=== PATIENT | female | born 1940 | race Caucasian/White ===

== ENCOUNTER 2024-10-11 08:44 | Emergency (ER) | payer MEDICARE, OTHER, SELFPAY ==
[2024-10-11 08:53] VITALS: BP 227/97; PULSE 89; RESP 18; TEMP 36.6; O2SAT 97; BMI 18.8
[2024-10-11 08:55] VITALS: PULSE 77; RESP 18; O2SAT 98
--- NOTE | 2024-10-11 08:59 | DI.CT.S_ITS ---
PROCEDURE: CT CERVICAL SPINE WO CON INDICATIONS: glf TECHNIQUE: Noncontrast 3 mm thick sections acquired from the skull base to the T4 level. Sagittal and coronal reformats were then constructed. For radiation dose reduction, the following was used: automated exposure control, adjustment of mA and/or kV according to patient size. COMPARISON: [facility], CT, CT HEAD/BRAIN WO CON, 10/11/2024, 9:07. FINDINGS: Image quality: Excellent. Bones: No fractures or dislocations. Visualized superior ribs are intact. Minimal anterolisthesis is seen at C3-C4 and C4-C5. There is moderate disc space narrowing seen at C4-C5 and C5-C6. Ixen-rr-duzyhsjk disc space narrowing is seen at C6-C7. Posteriorly directed endplate osteophytes are seen, which are worst at C5-C6. Multiple levels of facet hypertrophy can be seen. There is a degree of vertebral body fusion seen at T1-T2, which has the appearance of congenital fusion. Soft tissues: Prevertebral soft tissues are normal in thickness. No paravertebral hematomas. No apical pneumothoraces. Left upper lobe consolidation can be seen, with air bronchograms. IMPRESSION: No displaced fracture or traumatic subluxation. Left upper lobe consolidation with air bronchograms, which is attributed to infectious infiltrate. Degenerative changes are seen, which are worst at C5-C6. Dictated by: Daniel Chao M.D. on 10/11/2024 at 8:50 Approved by: Daniel Chao M.D. on 10/11/2024 at 8:52
--- NOTE | 2024-10-11 08:59 | DI.CT.S_ITS ---
PROCEDURE: CT HEAD/BRAIN WO CON INDICATIONS: glf TECHNIQUE: Noncontrast 4.5 mm thick angled axial sections acquired from the foramen magnum to the vertex, with coronal and sagittal reformats. For radiation dose reduction, the following was used: automated exposure control, adjustment of mA and/or kV according to patient size. COMPARISON: [facility], CT, CT CERVICAL SPINE WO CON, 10/11/2024, 9:07. FINDINGS: Image quality: Streak artifact can be seen through the skull base. CSF spaces: Basal cisterns are patent. No extra-axial fluid collections. The ventricles are symmetric in size and shape. Brain: No intracranial bleeds or mass effect. There is cerebral volume loss, with resultant ventricular and sulcal prominence. There are periventricular and deep white matter chronic small vessel ischemic changes. There is intracranial internal carotid artery atherosclerosis. Skull and face: Calvarium and visualized facial bones appear intact, without suspicious lesions. Sinuses: Visualized sinuses and mastoids are clear. IMPRESSION: No acute intracranial hemorrhage is seen. No acute intracranial pathology. Dictated by: Daniel Chao M.D. on 10/11/2024 at 8:52 Approved by: Daniel Chao M.D. on 10/11/2024 at 8:53
[2024-10-11 09:00] VITALS: BP 166/74; PULSE 69; O2SAT 98
--- NOTE | 2024-10-11 09:18 | ED.FALL ---
HPI - Fall General Chief Complaint: Fall Stated Complaint: FELL ON HEAD BLEEDING Time Seen by Provider: 10/11/24 09:10 Source: patient, RN notes reviewed and old records reviewed Mode of arrival: Ambulatory Limitations: no limitations History of Present Illness HPI Narrative: 84-year-old female no daily medications or anticoagulants who presents with ground level fall and injury to her head. Patient states she had gone over to a friend's house to try to feed the cat while they are out of town there was a small tree that was down she went to pull it a side so she could walk around the tree broke she fell backwards hitting her head. States she thinks she had a brief loss of consciousness she does not think it was any longer than a minute. She felt very dizzy afterwards crawled back to her car. Was able to drive home and call EMS. Since then she has been able to ambulate but still feels pretty shaky. States her head does hurt. Denies any neck or back pain. Denies any chest pain or shortness of breath. No nausea or vomiting. Denies any GI or urinary symptoms or incontinence. Denies any numbness tingling or weakness of her extremities. Patient states this happened around 6:40 a.m.. She states no daily medications. No recent surgeries. No tobacco, alcohol or recreational drugs. She lives on [place] [facility] saw her encouraged her to come to have imaging she caught the Sharpes. She states tetanus is up-to-date. Related Data Home Medications Medication Instructions Recorded Confirmed CA PANTOTHENATE/FOLIC ACID/VIT 1 tab PO QDAY ##1 07/27/11 (MULTIPLE VITAMINS) Calcium Carbonate/Vitamin D 1 cap PO BID ##0 07/27/11 (#CALCIUM) VITAMIN D 400 iu PO QDAY ##0 07/27/11 Previous Rx's Medication Instructions Recorded amoxicillin 875 mg-potassium 1 tab PO BID #20 tabs 10/11/24 clavulanate 125 mg tablet Allergies Allergy/AdvReac Type Severity Reaction Status Date / Time CODEINE Allergy Mild VOMITING Uncoded 09/05/17 12:07 PENICILLIN Allergy Mild Uncoded 09/05/17 12:07 SULFA (SULFONAMIDE) Allergy Mild Uncoded 09/05/17 12:07 Review of Systems Review of Systems ROS Unobtainable: All systems reviewed & are unremarkable except as noted in HPI and below Patient History Social History Smoking Status: Never smoker Smoking Status: Never smoker Exam Narrative Exam Narrative: GEN: Patient appears in mild distress. HEAD: Patient has posterior scalp laceration that is approximately a cm close to the top of the scalp but posterior, there was also a small puncture about a cm below the top laceration. no raccoon/Tabor sign. NECK: Nontender, painless range of motion, trachea midline Negative for Nexus criteria, no midline line tenderness, distracting injury, altered mental status, neuro deficit, recent EtOH. EYES: PERRLA, EOMI ENT: External inspection normal, trachea is midline, Nares are clear, no septal hematoma, no dental or oral injury, airway is normal and with normal occlusion, No bony tenderness RESP: Chest is nontender and has symmetric movement, no ecchymosis, breath sounds are normal no crackles, wheezes or rales CVS: Heart sounds are normal, no murmur noted, No JVD. ABG/GI: Nontender, soft, normal bowel sounds, no distention, no organomegaly, pelvic rock is negative NEURO: Oriented AOx3, neuro is grossly intact, sensation and motor is normal all 4 extremities moving, cranial nerves II through XII are intact, GCS is 15 PSYCH: Normal mood and affect SKIN: Intact, warm and dry, no crepitus and without decubitus BACK: No CVA tenderness, no vertebral tenderness, no step-off's, no crepitus EXT: Atraumatic, hips are nontender, no pedal edema, normal color and temperature, normal range of motion of extremities with normal tendon exam, 2+ pulses in all four extremities Initial Vital Signs Initial Vital Signs: Vital Signs Temperature 97.8 F 10/11/24 08:53 Pulse Rate 89 10/11/24 08:53 Respiratory Rate 18 10/11/24 08:53 Blood Pressure 227/97 H 10/11/24 08:53 Pulse Oximetry 97 10/11/24 08:53 Oxygen Delivery Method Room Air 10/11/24 08:53 Procedures Laceration Repair Laceration 1: Site: scalp Size (cm): 1 Description: irregular Depth: simple, single layer Skin layer closed with: akhil (#3 akhil ) Scores [place] CT Head Rule Age <16 years old: No Patient on blood thinners: No Seizure after injury: No Exclusion: Patient NOT Excluded, Proceed to next steps GCS < 15 at 2 hr post trauma: No Suspected open or depressed skull fracture: No Any sign of basilar skull fracture (hemotympanum, raccoon eyes, Tabor's sign, CSF aj-/rhinorrhea): No Two or more episodes of vomiting: No Age greater or equal to 65 years: Yes Retrograde amnesia to the event greater or equal to 30 min: No Dangerous Mechanism (pedestrian vs. mv, occupant ejected from mv, fall from >3 ft or > 5 stairs): Yes (+LOC) Recommendation: Consider CT. The Mauritanian Head CT Rule cannot rule out need for Imaging. GCS [place] coma scale eye opening: Spontaneous Hue coma scale verbal response: Orientated Hue coma scale motor response: Obey commands Hue coma scale total score: 15 Nexus Score for C-Spine Focal Neurologic deficit present: No Midline spinal tenderness present: No Altered level of conciousness present: No Intoxication present: No Distracting Injury Present: No Nexus Criteria for C-spine: 0 Course Orders Ordered: ED Orders 10/11/24 08:59 CT cervical spine wo con Stat CT head/brain wo con Stat Discontinued Medications Lidocaine/Prilocaine (Lidocaine/Prilocaine 30 Gm) 1 applic TOP NOW ONE Stop: 10/11/24 09:38 Last Admin: 10/11/24 09:44 Dose: Not Given Documented By: DOMINGO Lidocaine/Prilocaine (Lidocaine/Prilocaine 5 Gm) 1 gm TOP NOW ONE Stop: 10/11/24 09:46 Last Admin: 10/11/24 09:44 Dose: 1 gm Documented By: DOMINGO Vital Signs Vital signs: Vital Signs - 8 hr 10/11/24 08:53 10/11/24 08:55 10/11/24 09:00 Temperature 97.8 F Pulse Rate 89 77 69 Respiratory Rate 18 18 Blood Pressure 227/97 H Pulse Oximetry 97 98 98 Oxygen Delivery Method Room Air 10/11/24 09:00 10/11/24 10:35 Temperature Pulse Rate 78 Respiratory Rate 18 Blood Pressure 166/74 H 160/74 H Pulse Oximetry 98 Oxygen Delivery Method Room Air MDM - Fall MDM Narrative Medical decision making narrative: 84-year-old female with mechanical ground level fall fell backwards striking her head states she had a brief loss of consciousness felt quite dizzy afterwards that is improved but not totally resolve this was about almost 3 hours prior to arrival. Initial blood pressure is quite high, patient was not anticoagulated does not have any neck pain but based on age head CT and CT cervical spine were obtained. Patient states tetanus is up-to-date. Head CT no acute intracranial hemorrhage no acute intracranial pathology. CT cervical spine no displaced fracture or traumatic subluxation, left upper lobe consolidation with air bronchograms attributed infectious infiltrate. Degenerative changes seen which are worst at C5-6. Wounds, patient was 1 which appears to be prior repair of the other is more of a puncture wound and quite small with no active bleeding does not require repair. Reviewed all the findings with the patient she was not had any infectious symptoms recently but we will treat for pneumonia and then have her follow up for dedicated imaging of her chest. Patient expressed understanding. Reviewed return precautions all questions answered. Discussed potential for concussion and concussive symptoms. Discharge Plan Departure Patient Disposition: Home Clinical Impression: Laceration of scalp, Pneumonia Instructions: DI for Concussion, DI for Laceration Repair -- [place] Activity Restrictions/Additional Instructions: Your workup today does show changes to the left upper lung your CT cervical spine consistent with infection. I would treat you with antibiotics and heavy follow up for a dedicated imaging with your primary care. Prescription for antibiotics was sent to the [facility]. Wound Care: Keep wound(s) clean and dry. Wash daily with soap and water only. Do not use over the counter products (alcohol or peroxide)on the wounds unless instructed by a physician. If wound condition worsens (increased/expanding redness, developing fluid blisters, or worsening pain), either contact your doctor for an urgent re-assessment , or return to the Emergency Department. Return to the ED, urgent care, or visit a primary care doctor for removal of your akhil in 7-10 days Return if fever greater than 100.4 Fahrenheit, increased swelling, increasing pain or worsening symptoms such as increased discharge or spreading redness, severe headaches, nausea vomiting, worsening dizziness, new difficulties with speech, movement or other new or concerning changes.. Prescriptions: New amoxicillin-pot clavulanate 875-125 mg tablet 1 tab PO BID Qty: 20 0RF No Action CA PANTOTHENATE/FOLIC ACID/VIT (MULTIPLE VITAMINS) 1 tab PO QDAY Qty: 1 Calcium Carbonate/Vitamin D (#CALCIUM) 1 cap PO BID Qty: 0 VITAMIN D 400 iu PO QDAY Qty: 0 Stand Alone Forms: Patient Portal/API/Survey
[2024-10-11] MEDS: LIDOCAINE/PRILOCAINE 5 GM 1 GM TOP (09:44)
[2024-10-11 10:35] VITALS: BP 160/74; PULSE 78; RESP 18; O2SAT 98
== END 2024-10-11 10:39 | disposition home or self-care (01) ==
PROVIDERS: Emergency Provider Emergency Medicine; Family Provider Family Medicine
DX: S01.01XA Laceration without foreign body of scalp, initial encounter (principal); J18.9 Pneumonia, unspecified organism; R42 Dizziness and giddiness; W18.30XA Fall on same level, unspecified, initial encounter
CPT/HCPCS: 12001; 70450; 72125; 99283; 99284

== ENCOUNTER 2025-05-27 14:59 | Emergency (ER) | payer MEDICARE, OTHER, SELFPAY ==
--- OUTSIDE RECORDS SUMMARY | 2025-05-27 15:02 | XMS_ITS | Clinical Summary ---
Author Organization [facility] Address [address] [place] [address] Care Team Providers Care Desktop Engineer Name Role Phone Pcp, None Selected Primary Care Provider Unavail able Allergies No known active allergies Medications No known medications Active Problems No known active problems Social History Tobacco Use Types Packs/Day Years Used Date Smoking Tobacco: Former Smokeless Tobacco: Never Alcohol Use Standard Drinks/Week Comments Never 0 (1 standard drink = 0.6 oz pur e alcohol) AUDIT-C Answer Date Recorded Frequency of Alcohol Consumption Never 03/10/2019 Average Number of Drinks Not on file 019 Frequency of Binge Drinking Not on file 02/25 Comments Unknown Sex and Gender Information Value Date Recorded Sex Assigned at Not on file Legal Sex Female 11:27 AM PDT Gender Identity Not on file Sexual Orientation Not on file Plan of Treatment Health Maintenance Due Date Last Done Comments Depression Screening (PHQ-2) 1952 Fall Risk Screening 2004 RSV Patients Over 60 years OR qualifying ( Patients) (1 - 1-dose 75+ series) 2014 COVID-19 Vaccine ( season) 2025 Influenza Vaccine (#1) 2025 8, 03/01/2017, 02/21/2016, Additional history exists DTaP,Tdap,and Td Vaccines (2 - Td or Tdap) 02/20/2026 02/21/2016 Varicella Vaccines Discontinued 06/17/2012 HM Pneumococcal Adult 50+ Completed 03/20/2017, [facility] Pneumococcal Combined Age 0-49 Discontinued 03/20/2017, 02/12/2015 Zoster Vaccines Completed 03/06/2018, 11/26, 06/17/2012 HPV Vaccines Aged Out No longer eligi ble based on patient's age to complete this topic Hepatitis A Vaccines Aged Out No long er eligible based on patient's age to complete this topic Hepatitis B Vaccines Aged Out No long er eligible based on patient's age to complete this topic IPV Vaccines Aged Out No longer eligi ble based on patient's age to complete this topic MMR Vaccines Aged Out No longer eligi ble based on patient's age to complete this topic Insurance MEDICARE PART A AND B [facility] Care Teams Desktop Engineer Relationship Specialty Start Date End Date Pcp, None Selected PCP - General 09/11/24
[2025-05-27 15:47] VITALS: BP 187/86; PULSE 82; RESP 17; TEMP 36.7; O2SAT 97; BMI 19.1
--- NOTE | 2025-05-27 15:51 | DI.RAD.S_ITS ---
PROCEDURE: XR HAND LT MIN 3V INDICATIONS: table saw injury TECHNIQUE: 3 views of the hand(s) acquired. COMPARISON: None. FINDINGS: Bones: No fractures or dislocations. Carpal bones are normally aligned. No suspicious bony lesions. Soft tissues: No suspicious soft tissue calcifications. Deep laceration of the 2nd distal phalanx dorsal aspect. IMPRESSION: No acute bony abnormality. Dictated by: Miguel Angel Vail M.D. on 05/27/2025 at 15:54 Approved by: Miguel Angel Vail M.D. on 05/27/2025 at 15:56
--- NOTE | 2025-05-27 17:28 | ED.WOUNDLAC ---
HPI - Wound/Laceration <Lily Morrell PA-C - Last Filed: 05/27/25 20:15> General Chief Complaint: Wound/Laceration Stated Complaint: LT Hand laceration Time Seen by Provider: 05/27/25 15:40 Source: patient Mode of arrival: Family Vehicle History of Present Illness HPI narrative: Ms. Green is a pleasant 85-year-old female who denies any significant past medical history that presents to the emergency department for laceration that occurred to her left 2nd and 3rd fingers prior to arrival today. Patient lives on [address]. She was cutting wood using a hand saw when she accidentally cut her left index finger and middle finger. The distal tip of her index finger now has some lacerations involving the tip of the nail. Her middle finger has a 2 cm abrasion/avulsion of the ulnar aspect of her distal phalanx and also a small laceration on the tip of the finger as well. Bleeding is controlled with direct pressure. She is unsure of her last Tdap. She does not take blood thinners. She still is able to fully flex and extend her fingers of the D IP, PIP and MCP joints. Brisk cap refill and sensation is intact to light touch in the tips of her fingers. She denies any other injuries. She is right hand dominant. Related Data Home Medications ?Medication ?Instructions ?Recorded ?Confirmed CA PANTOTHENATE/FOLIC ACID/VIT 1 tab PO QDAY ##1 07/27/11 (MULTIPLE VITAMINS) Calcium Carbonate/Vitamin D 1 cap PO BID ##0 07/27/11 (#CALCIUM) VITAMIN D 400 iu PO QDAY ##0 07/27/11 Previous Rx's ?Medication ?Instructions ?Recorded amoxicillin 875 mg-potassium 1 tab PO BID #20 tabs 10/11/24 clavulanate 125 mg tablet cephalexin 500 mg capsule 500 mg PO QID 7 days #28 caps 05/27/25 Allergies Allergy/AdvReac Type Severity Reaction Status Date / Time CODEINE Allergy Mild VOMITING Uncoded 05/27/25 15:47 PENICILLIN Allergy Mild Uncoded 05/27/25 15:47 SULFA (SULFONAMIDE) Allergy Mild Uncoded 05/27/25 15:47 Review of Systems <Lily Morrell PA-C - Last Filed: 05/27/25 20:15> Review of Systems ROS Unobtainable: All systems reviewed & are unremarkable except as noted in HPI and below Patient History <Lily Morrell PA-C - Last Filed: 05/27/25 20:15> Social History Smoking Status: Former smoker Smoking Status: Former smoker tobacco type: cigarettes Exam <Lily Morrell PA-C - Last Filed: 05/27/25 20:15> Narrative Exam Narrative: GENERAL: 85 year old patient appears stated age. Well-developed patient, in no acute distress. HEAD: Atraumatic. Normocephalic. EYES: No scleral icterus. No injection or drainage. NECK: Trachea midline. Cervical ROM intact. CARDIOVASCULAR: Regular rate RESPIRATORY: ?Nonlabored respirations. ?Speaking in clear, full sentences. ? EXTREMITIES: LEFT HAND: There is a jagged laceration across the distal tip of the index finger involving the distal most portion of the nail, measuring approximately 0.5 cm. On the middle finger, the distal ulnar side of the phalanx has an avulsion/deep abrasion of the skin that is approximately 2 cm, there is a punctate area of pulsatile blood that is controlled with pressure. On the distal tip of the finger she also has small laceration just distal to the nail. Isolated flexion-extension are intact at both DIP, PIP and MCP joints. Brisk cap refill are present on the fingertips and sensation intact to light touch in the fingertips. NEURO: AOx3. ?Clear speech. ?Moves all 4 extremities appropriately. SKIN: Left 2nd and 3rd finger lacerations described above. Initial Vital Signs Initial Vital Signs: Vital Signs Temperature 98.1 F 05/27/25 15:47 Pulse Rate 82 05/27/25 15:47 Respiratory Rate 17 05/27/25 15:47 Blood Pressure 187/86 H 05/27/25 15:47 Pulse Oximetry 97 05/27/25 15:47 Oxygen Delivery Method Room Air 05/27/25 15:47 <Misty Nolan MD - Last Filed: 05/29/25 01:26> Initial Vital Signs Initial Vital Signs: Vital Signs Temperature 98.1 F 05/27/25 15:47 Pulse Rate 82 05/27/25 15:47 Respiratory Rate 17 05/27/25 15:47 Blood Pressure 187/86 H 05/27/25 15:47 Pulse Oximetry 97 05/27/25 15:47 Oxygen Delivery Method Room Air 05/27/25 15:47 Procedures <Lily Morrell PA-C - Last Filed: 05/27/25 20:15> Laceration Repair Laceration 1: Site: hand (index finger) Side (If applicable): left Size (cm): 0.5 Description: irregular Depth: simple, single layer Local Anesthetic: other anesthetic (bupivicaine 0.25 % digital block ) Amount of anesthesia used (mL): 3 Pre-repair: wound explored, irrigated extensively (With diluted Betadine) and deep structures intact Skin layer closed with: other (monocryl) Skin layer suture size: 5-0 Number of sutures: 3 Technique: simple, interrupted Laceration 2: Site: hand (middle finger) Size (cm): 2 Description: other (avulsion with punctate pulsatile bleed) Depth: simple, single layer Local Anesthetic: bupivacaine 0.25% (digital block) Amount of anesthesia used (mL): 3 Pre-repair: wound explored, irrigated extensively and deep structures intact Skin layer closed with: other (monocryl) Skin layer suture size: 5-0 Number of sutures: 1 Technique: other (figure of 8) Course <Lily Morrell PA-C - Last Filed: 05/27/25 20:15> Orders Ordered: Discontinued Medications Bacitracin (Bacitracin Oint 0.9 Gm Pckt) 1 applic TOP NOW ONE Stop: 05/27/25 18:25 Last Admin: 05/27/25 19:07 Dose: Not Given Documented By: AV Cephalexin HCl (Cephalexin 250 Mg Capsule) 500 mg PO NOW ONE Stop: 05/27/25 18:25 Last Admin: 05/27/25 19:02 Dose: 500 mg Documented By: AV Diphtheria/Tetanus/Acell Pertussis (Tet,Diph,Pertuss(Acell),Vac/Pf 0.5 Ml Syringe) 0.5 ml IM .ONCE ONE Stop: 05/27/25 18:25 Last Admin: 05/27/25 19:02 Dose: 0.5 ml Documented By: AV Vital Signs Vital signs: Vital Signs - 8 hr 05/27/25 15:47 05/27/25 19:21 Temperature 98.1 F Pulse Rate 82 86 Respiratory Rate 17 Blood Pressure 187/86 H 189/84 H Pulse Oximetry 97 95 Oxygen Delivery Method Room Air Room Air <Misty Nolan MD - Last Filed: 05/29/25 01:26> Orders Ordered: Discontinued Medications Bacitracin (Bacitracin Oint 0.9 Gm Pckt) 1 applic TOP NOW ONE Stop: 05/27/25 18:25 Last Admin: 05/27/25 19:07 Dose: Not Given Documented By: AV Cephalexin HCl (Cephalexin 250 Mg Capsule) 500 mg PO NOW ONE Stop: 05/27/25 18:25 Last Admin: 05/27/25 19:02 Dose: 500 mg Documented By: AV Diphtheria/Tetanus/Acell Pertussis (Tet,Diph,Pertuss(Acell),Vac/Pf 0.5 Ml Syringe) 0.5 ml IM .ONCE ONE Stop: 05/27/25 18: Last Admin: 05/27/25 19:02 Dose: 0.5 ml Documented By: AV Vital Signs Vital signs: Vital Signs - 8 hr 05/27/25 15:47 05/27/25 19:21 Temperature 98.1 F Pulse Rate 82 86 Respiratory Rate 17 Blood Pressure 187/86 H 189/84 H Pulse Oximetry 97 95 Oxygen Delivery Method Room Air Room Air MDM - Wound/Laceration <Lily Morrell PA-C - Last Filed: 05/27/25 20:15> Medical Records Attestation: I reviewed the patient's medical records. Imaging Data Left Hand X-Ray: Radiologist's Impression: PROCEDURE: XR HAND LT MIN 3V INDICATIONS: table saw injury TECHNIQUE: 3 views of the hand(s) acquired. COMPARISON: None. FINDINGS: Bones: No fractures or dislocations. Carpal bones are normally aligned. No suspicious bony lesions. Soft tissues: No suspicious soft tissue calcifications. Deep laceration of the 2nd distal phalanx dorsal aspect. IMPRESSION: No acute bony abnormality. Dictated by: Miguel Angel Vail M.D. on 05/27/2025 at 15:54 Approved by: Miguel Angel Vail M.D. on 05/27/2025 at 15:56 [facility] Narrative Medical decision making narrative: 85-year-old female who denies any significant past medical history that presents to the emergency department for laceration that occurred to her left 2nd and 3rd fingers prior to arrival today due to an injury from a table saw. Differential diagnosis includes but is not limited to 2nd and 3rd finger laceration, open fracture, nail bed laceration, etc. On exam the patient is in no acute distress, nontoxic appearing, vital signs appropriate except for mildly elevated blood pressure. Her left index finger has a distal fingertip laceration involving the distal nailbed and her middle finger has an avulsion of the skin on the ulnar aspect of the distal phalanx and a small laceration of the distal tip past the nail bed. Digital block performed of 2nd and 3rd digit successfully. X-ray obtained revealing no acute bony abnormality. There is a deep laceration of the 2nd distal phalanx dorsal aspect. Wounds were irrigated and cleansed extensively using diluted Betadine. A [id number] suture was used to stop the bleeding within the avulsion laceration of the middle finger. Bacitracin, Xeroform and a nonadherent pressure dressing was applied to this wound to allow it to heal by secondary intention. The distal portion of the index finger nail was removed however patient declines having the entire nail removed. Because of this only portions of the laceration were sutured, 3 individual sutures were used. A pressure nonadherent dressing was also applied to this finger. Patient was treated empirically with cephalexin and Tdap was updated. Extensively discussed proper wound care with the patient. Advised PCP follow up in ER return precautions. Antibiotics sent to pharmacy of choice. Discussed supportive care. She verbalized understanding of all information and is agreeable with the plan and is eager for discharge home in order to catch the Morning Sun. She is stable at this time. Discharge Plan Departure Patient Disposition: Home Clinical Impression: Laceration of finger Qualifiers: Encounter type: initial encounter Finger: middle finger Damage to nail status: with damage Foreign body presence: without foreign body Laterality: left Qualified Code(s): S61.313A - Laceration without foreign body of left middle finger with damage to nail, initial encounter Laceration of multiple sites of hand and fingers Qualifiers: Encounter type: initial encounter Laterality: left Qualified Code(s): S61.412A - Laceration without foreign body of left hand, initial encounter Instructions: DI for Laceration Repair Activity Restrictions/Additional Instructions: Dear Ms. Green, Thank you for coming to the emergency department. I am very sorry that you had lacerations to your left 2nd and 3rd fingers today. The laceration on your middle finger we will need to heal from the bottom up. One stitch has been placed into this wound to stop the bleeding. Three stitches have been placed into your index finger and part of your nail was removed. Please keep the dressings on dry and clean for the next 24-48 hours. After this time you may soak the wounds with warm soapy water, gently cleansed, then pat dry. Then apply bacitracin or Aquaphor to the wounds and cover them with gauze and a bandage. Do this every day until the wounds heal. It may take multiple weeks. Please complete the full course of antibiotics and follow up with your primary care doctor. Please return to the ER if you develop redness, streaking up the hand, fevers, pus draining from the wound or any other concerns for infection. Your tetanus shot was updated today. Please follow up with your primary care doctor within the next 2-3 days for ER follow-up. (If you do not have a PCP you can call [phone]. ?to schedule an appointment with an [facility] Primary Care Provider) IF YOU DEVELOP ANY NEW OR WORSENING SYMPTOMS, RETURN TO THE ER! Please read the attached instructions, they highlight more specific treatments and interventions for you at home. Thank you for letting me participate in your care, Lily Morrell PA-C Prescriptions: New cephalexin 500 mg capsule 500 mg PO QID 7 Days Qty: 28 0RF No Action CA PANTOTHENATE/FOLIC ACID/VIT (MULTIPLE VITAMINS) 1 tab PO QDAY Qty: 1 Calcium Carbonate/Vitamin D (#CALCIUM) 1 cap PO BID Qty: 0 VITAMIN D 400 iu PO QDAY Qty: 0 amoxicillin-pot clavulanate 875-125 mg tablet 1 tab PO BID Qty: 20 0RF Stand Alone Forms: Patient Portal/API ED Sign-out <Misty Nolan MD - Last Filed: 05/29/25 01:26> Cosign ED Attending Cosignature Attestation: I did not personally see or examine the patient but was available for consultation and supervision throughout the encounter. I reviewed the documentation and agree with the assessment and plan as written. Misty Nolan MD Emergency Medicine
[2025-05-27] MEDS: TET,DIPH,PERTUSS(ACELL),VAC/PF 0.5 ML SYRINGE IM (19:02)
[2025-05-27 19:21] VITALS: BP 189/84; PULSE 86; O2SAT 95
== END 2025-05-27 19:22 | disposition home or self-care (01) ==
PROVIDERS: Emergency Provider Physician Assistant; Family Provider Family Medicine
DX: S61.311A Laceration without foreign body of left index finger with damage to nail, initial encounter (principal); W27.0XXA Contact with workbench tool, initial encounter; Z23 Encounter for immunization
CPT/HCPCS: 12001; 73130; 90471; 99283; 90715